=== PATIENT | female | born 1990 | race African-American/Black ===

== ENCOUNTER 2019-08-31 11:41 | Emergency (ER) | payer OTHER ==
[2019-08-31 11:57] VITALS: BP 115/86; PULSE 108; TEMP 98.7; BMI 24.9
--- NOTE | 2019-08-31 13:14 | PDOC ---
History of Present Illness - General Chief Complaint: Respiratory Stated Complaint: DIZZNESS/COUGHING/CONGESTED Time Seen by Provider: 08/31/19 12:41 History Source: Patient Exam Limitations: No Limitations Past History - Travel Traveled outside of the country in the last 30 days: No Close contact w/someone who was outside of country & ill: No - Past Medical History Allergies/Adverse Reactions: Allergies Allergy/AdvReac Type Severity Reaction Status Date / Time No Known Allergies Allergy Verified 08/31/19 11:58 Home Medications: Ambulatory Orders Albuterol Sulfate Inhaler - [Ventolin HFA Inhaler -] 1 - 2 inh PO Q4H #1 inhaler 08/31/19 Fluticasone Prop 0.05% Nasal [Flonase -] 1 - 2 spray NS DAILY #1 spray.pump 02/12 Meclizine HCl [Antivert -] 25 mg PO TID #21 tablet 08/31/19 Methylprednisolone [Medrol Dose Anthony] 4 mg PO ASDIR #21 tablet 08/31/19 Pseudoephedrine HCl 30 mg PO Q8H #21 tablet 08/31/19 COPD: No - Psycho Social/Smoking Cessation Hx Smoking History: Never smoked Hx Alcohol Use: No Drug/Substance Use Hx: No Review of Systems - Review of Systems Able to Perform ROS?: Yes Is the patient limited Tajik proficient: No *Physical Exam - Vital Signs Last Vital Signs Temp Pulse Resp BP Pulse Ox 98.7 F 108 H 14 115/86 97 08/31/19 11:55 08/31/19 11:55 08/31/19 11:55 08/31/19 11:55 08/31/19 11:55 Discharge - Discharge Information Problems reviewed: Yes Clinical Impression/Diagnosis: Bronchitis, Vertigo Condition: Stable Disposition: HOME - Admission No - Follow up/Referral - Patient Discharge Instructions Patient Printed Discharge Instructions: DI for Acute Bronchitis, DI for Vertigo Additional Instructions: You have bronchitis and vertigo (dizziness). Please use the inhaler every 4 hours for the next week to help with your cough. Continue taking the prednisone daily for the next 4 days. Take the Flonase and meclizine as directed for the dizziness Please follow up with your primary care doctor in 1 week if your symptoms are not improving. Return to the emergency department if you have fevers, chills, worsening cough, chest pain, worsening shortness of breath or if you have any changes in your symptoms. - Post Discharge Activity Work/Back to School Note: Back to Work
[2019-08-31] MEDS ORDERED: IBUPROFEN 600 MG TABLET (FP) PO ONE ×2 (13:27→13:29)
[2019-08-31] MEDS ORDERED: ALBUTEROL SO4 2.5/IPRATROPIUM 0.5 INH SOL 3 ML VIAL.NEB. NEB ONE ×2 (13:27→13:29)
[2019-08-31] MEDS ORDERED: DEXAMETHASONE LIQUID 0.5 MG/5 ML PO ONE (13:27)
[2019-08-31] MEDS ORDERED: DEXAMETHASONE SOD PHOSPHATE 10 MG/1 ML VIAL ONE (13:29)
[2019-08-31] MEDS ORDERED: MECLIZINE HCL 25 MG TABLET (FP) PO ONE (14:23)
[2019-08-31] MEDS ORDERED: MECLIZINE HCL 25 MG TABLET (FP) ONE (14:41)
== END 2019-08-31 14:46 | disposition home or self-care (01) ==
LOC: JERFT 11:41
PROC: 3E0F7GC Introduction of Other Therapeutic Substance into Respiratory Tract, Via Natural or Artificial Opening (ICD-10-PCS; principal; 2019-08-31)
DX: J20.9 Acute bronchitis, unspecified (principal); R42 Dizziness and giddiness
CPT/HCPCS: 71046-TC-FY; 87804; 94640; 99281-25

== ENCOUNTER 2020-03-14 12:26 | Emergency (ER) | payer OTHER ==
--- NOTE | 2020-03-14 12:42 | PDOC ---
History of Present Illness - General Stated Complaint: FEVER Time Seen by Provider: 03/14/20 12:42 History Source: Patient Exam Limitations: No Limitations - History of Present Illness Initial Comments: 03/14/20 13:02 30y previously healthy F presenting w 4d subjective fevers, body aches, R breast tenderness. Took tylenol intermittently w/o relief. Concerned she may have covid d/t exposure to and coworker covid+, works with children. Denies nausea/vomiting, cough, SOB, ABD pain, urinary/bowel mvmt changes. Past History - Medical History Allergies/Adverse Reactions: Allergies Allergy/AdvReac Type Severity Reaction Status Date / Time No Known Allergies Allergy Verified 08/31/19 11:58 Home Medications: Ambulatory Orders Albuterol Sulfate Inhaler - [Ventolin HFA Inhaler -] 1 - 2 inh PO Q4H #1 inhaler 08/31/19 Fluticasone Prop 0.05% Nasal [Flonase -] 1 - 2 spray NS DAILY #1 spray.pump 08/31/19 Meclizine HCl [Antivert -] 25 mg PO TID #21 tablet 08/31/19 Methylprednisolone [Medrol Dose Anthony] 4 mg PO ASDIR #21 tablet 08/31/19 Ondansetron [Zofran Odt -] 4 mg SL TID #10 od.tablet 08/31/19 Pseudoephedrine HCl 30 mg PO Q8H #21 tablet 08/31/19 COPD: No - Psycho-Social/Smoking History Smoking History: Never smoked Review of Systems - Review of Systems Constitutional: Yes: Chills, Fever HEENTM: No: Eye Pain, Nose Pain Respiratory: No: Cough, Shortness of Breath Cardiac (ROS): Yes: Chest Pain. No: Lightheadedness ABD/GI: No: Abdominal Distended, Diarrhea, Nausea, Vomiting : No: Burning, Dysuria Musculoskeletal: No: Back Pain, Joint Pain Integumentary: No: Bruising, Dryness Neurological: No: Headache, Seizure Psychiatric: No: Anxiety, Depression Endocrine: No: Intolerance to Cold, Intolerance to Heat Hematologic/Lymphatic: No: Anemia, Blood Clots *Physical Exam - Physical Exam General Appearance: Yes: Nourished, Appropriately Dressed, Mild Distress HEENT: positive: EOMI, MASON, Normal Voice, Hearing Grossly Normal. negative: Scleral Icterus (R), Scleral Icterus (L) Respiratory/Chest: positive: Chest Tender (R chest, no discharge/mass), Lungs Clear, Normal Breath Sounds. negative: Respiratory Distress, Crackles, Rales, Rhonchi, Stridor, Wheezing Cardiovascular: positive: Regular Rhythm, Regular Rate, S1, S2. negative: Edema, Murmur Gastrointestinal/Abdominal: positive: Normal Bowel Sounds, Flat, Soft. negative: Tender, Organomegaly Integumentary: positive: Normal Color, Warm. negative: Dry Neurologic: positive: Fully Oriented, Alert, Normal Mood/Affect, Normal Response, Responsive Medical Decision Making - Medical Decision Making 03/14/20 13:05 CXR - Single view of the chest is been submitted. Since 08/31/2019 there is a week or inspiration with central crowding of markings, prominent heart, normal aorta and some vague increased markings at the bases. Gross infiltrate is not seen. The angles are sharp. The bones and soft tissues are intact. Impression: Weak inspiration. Central crowding. --- 30y previously healthy F presenting w 4d subjective fevers, body aches, R breast tenderness. Possible covid infection and R breast pain - costochondritis (tender w palpation). Low concern for ACS (no risk factors) vs UTI vs vs PNA (no gross infiltrates). Vitals wnl, no respiratory distress Given tylenol. Pt refused covid nasal swab DC home w PCP f/u, quarantine instructions, supportive care Discharge - Discharge Information Problems reviewed: Yes Clinical Impression/Diagnosis: Costochondritis, Suspected COVID-19 virus infection Fever Qualifiers: Fever type: unspecified Qualified Code(s): R50.9 - Fever, unspecified Condition: Improved Disposition: HOME - Follow up/Referral - Patient Discharge Instructions Patient Printed Discharge Instructions: [facility]-Coronavirus Instructions, R- [facility] COVID-19 Isolation Protocol Additional Instructions: You refused the coronavirus nasal swab Please self-quarantine for the next 14 days for suspected coronavirus Take tylenol or ibuprofen if you have pain or fever Follow up with your primary care doctor Come back to the ED if you cannot breathe or persistent vomiting. - Post Discharge Activity
[2020-03-14] MEDS ORDERED: ACETAMINOPHEN 500 MG TABLET (FP) PO ONE (13:00)
[2020-03-14] MEDS ORDERED: ACETAMINOPHEN 325 MG TABLET (FP) ONE (13:18)
[2020-03-14 13:37] LABS: URINE APPEARANCE CLEAR; URINE BILIRUBIN NEGATIVE (NEGATIVE); URINE COLOR YELLOW; URINE GLUCOSE (UA) NEGATIVE (NEGATIVE); URINE KETONE NEGATIVE (NEGATIVE); URINE LEUK ESTERASE NEGATIVE (NEGATIVE); URINE NITRITE NEGATIVE (NEGATIVE); URINE PROTEIN NEGATIVE (NEGATIVE)
[2020-03-14 13:39] LABS: HCG,QUALITATIVE URINE Negative
[2020-03-14 13:40] VITALS: TEMP 99.8; BMI 28.3
--- NOTE | 2020-03-14 14:28 | PDOC ---
Documentation entered by Aletha Meraz SCRIBE, acting as scribe for Rosemary Pedroza MD. Rosemary Pedroza MD: This documentation has been prepared by the scribe, Aletha Dwyer SCRIBE, under my direction and personally reviewed by me in its entirety. I confirm that the documentation accurately reflects all work, treatment, procedures, and medical decision making performed by me. Attending Attestation - Resident Resident Name: Codie,Dave - ED Attending Attestation I have performed the following: I have examined & evaluated the patient, The case was reviewed & discussed with the resident, I agree w/resident's findings & plan, Exceptions are as noted - HPI HPI: 03/14/20 14:28 30 yo F here with fever x 5 days. Reports coworker COVID+ so thinks she might have COVID. Denies cough, SOB, abdominal pain or urinary complaints. Tolerating PO. Reports daughter at home has diarrhea but no fever. Patient denies diarrhea. - Physicial Exam PE: 03/14/20 14:29 General: very well appearing HEENT: NCAT, MMM CHest: CTAB, good air entry CVS: + s1 s2, RRR Abdomen: soft, nt no rebound, no guarding Extremities: warm and well perfused - Medical Decision Making 03/14/20 14:30 30 yo F here with fever and exposure to COVID+ coworker, no other complaints, very well appearing, no signs of respiratory issues and O2 sat 100%. Plan: -urine -cxr -pt refused COVID testing saying she does not want to have a nasal swab -tylenol as needed -reassess, anticipate d/c home with return precautions, instructions to quarantine, supportive care at home, PMD f/u This clinical encounter is taking place during a federal and state health care emergency attributable to the novel Parikh Virus pandemic. The Assistant Research Scientist of the Department of Health and Human Services has declared, pursuant to the Public Health Service Act 319F-3 (42 U.S.C. 247d-6d), that a covered persons activities related to medical countermeasures against COVID-19 will be immune from liability under Federal and State law. Discharge - Discharge Information Problems reviewed: Yes Clinical Impression/Diagnosis: Costochondritis, Suspected COVID-19 virus infection Fever Qualifiers: Fever type: unspecified Qualified Code(s): R50.9 - Fever, unspecified Condition: Improved Disposition: HOME - Follow up/Referral - Patient Discharge Instructions Patient Printed Discharge Instructions: [facility]Coronavirus Instructions, [facility]- [facility] COVID-19 Isolation Protocol Additional Instructions: You refused the coronavirus nasal swab Please self-quarantine for the next 14 days for suspected coronavirus Take tylenol or ibuprofen if you have pain or fever Follow up with your primary care doctor Come back to the ED if you cannot breathe or persistent vomiting. - Post Discharge Activity
[2020-03-14 15:19] VITALS: BP 118/76; PULSE 85
== END 2020-03-14 15:18 | disposition home or self-care (01) ==
LOC: JER 12:26
DX: M94.0 Chondrocostal junction syndrome [Tietze] (principal); R50.9 Fever, unspecified
CPT/HCPCS: 71045-TC-FY; 81003; 84703; 87086; 99284-25

== ENCOUNTER 2021-09-06 07:18 | Inpatient (IN) | payer OTHER ==
[2021-09-06 08:19] VITALS: BMI 31.8
[2021-09-06] MEDS ORDERED: CITRIC ACID/SODIUM CITRATE 30 ML UNIT-DOSE CUP PO ONE (08:20)
[2021-09-06] MEDS ORDERED: ELECTROLYTE-148 SOLN 500 ML IV ONE (08:20)
[2021-09-06] MEDS ORDERED: morphine SULFATE/PF 1 MG/2 ML (2cc Syringe - QUVA) ONE (08:26)
[2021-09-06] MEDS ORDERED: OXYTOCIN 20 UNITS in 0.9% NS 20 UNIT/1,000 ML INFUS.BAG IV ONE (08:27)
[2021-09-06] MEDS ORDERED: OXYTOCIN 10 UNITS/ML VIAL ONE (09:20)
[2021-09-06] MEDS ORDERED: DEXAMETHASONE SOD PHOSPHATE 4 MG/1 ML VIAL ONE (09:20)
[2021-09-06] MEDS ORDERED: KETOROLAC TROMETHAMINE 30 MG/1 ML VIAL ONE (09:20)
[2021-09-06] MEDS ORDERED: ceFAZolin SODIUM 1 GM VIAL ONE (09:20)
[2021-09-06] MEDS ORDERED: ONDANSETRON 4 MG/2 ML VIAL ONE (09:20)
[2021-09-06] MEDS ORDERED: ACETAMINOPHEN 1000 MG/100 ML BAG IVPB PRN (10:21)
[2021-09-06] MEDS ORDERED: ONDANSETRON 4 MG/2 ML VIAL IVPB PRN (10:21)
[2021-09-06] MEDS ORDERED: oxyCODONE HCL 5 MG TABLET PO PRN (10:21)
[2021-09-06] MEDS ORDERED: SENNOSIDES/DOCUSATE COMBO (SENNA PLUS) TABLET (UD) PO PRN (10:21)
[2021-09-06] MEDS ORDERED: morphine SULFATE/PF 1 MG/2 ML (2cc Syringe - QUVA) SPIN ONE (10:50)
[2021-09-06] MEDS: IBUPROFEN 800 MG/8 ML IJ IVPB PRN (17:42)
[2021-09-06] MEDS ORDERED: CEFAZOLIN 2 GM in DEXTROSE 5%-WATER - 50 ML IVPB SCH (18:00)
[2021-09-06] MEDS: CEFAZOLIN 2 GM in SODIUM CHLORIDE 100 ML IVPB SCH (18:11)
[2021-09-07] MEDS: OXYTOCIN 20 UNITS in 0.9% NS 20 UNIT/1,000 ML INFUS.BAG IV SCH ×2 (00:16→21:47)
[2021-09-07] MEDS: CEFAZOLIN 2 GM in SODIUM CHLORIDE 100 ML IVPB SCH (01:25)
[2021-09-07] MEDS: IBUPROFEN 800 MG/8 ML IJ IVPB PRN (06:43)
[2021-09-07 06:48] LABS: BASO % 0.4 % (0-2.0); EOS % 0.5 % (0-4.5); HEMATOCRIT 35.4 % (32.4-45.2); MCH 31.3 pg (25.7-33.7); MEAN CELL VOLUME 92.1 fl (80-96); MONO % 9.3 % (3.8-10.2); NEUT % 69.8 % (42.8-82.8); PLATELET COUNT 105 10^3/uL (134-434); RBC 3.84 M/mm3 (3.60-5.2); RDW 14.2 % (11.6-15.6); WHITE BLOOD COUNT 7.6 K/mm3 (4.0-10.0)
[2021-09-07] MEDS ORDERED: ACETAMINOPHEN 325 MG TABLET (FP) PO PRN (10:21)
[2021-09-07] MEDS ORDERED: BISACODYL 10 MG SUPP.RECT RC PRN (10:21)
[2021-09-07] MEDS: IBUPROFEN 600 MG TABLET (FP) PO PRN ×2 (13:07→17:29)
[2021-09-07] MEDS: SIMETHICONE 80 MG TAB.CHEW (FP) PO PRN ×2 (13:10→17:36)
[2021-09-08] MEDS: IBUPROFEN 600 MG TABLET (FP) PO PRN ×2 (03:01→09:14)
[2021-09-08] MEDS: SIMETHICONE 80 MG TAB.CHEW (FP) PO PRN ×2 (03:02→09:14)
[2021-09-08 10:20] VITALS: BP 130/76; PULSE 73; TEMP 98.6
== END 2021-09-08 15:35 | disposition home or self-care (01) | DRG 540 ==
LOC: JLDR 07:18 → J3W 12:55
PROVIDERS: ADMIT Specialist; ATTEND Specialist
PROC: 10D00Z1 Extraction of Products of Conception, Low, Open Approach (ICD-10-PCS; principal; 2021-09-06)
DX: O34.219 Maternal care for unspecified type scar from previous cesarean delivery (principal); O69.1XX0 Labor and delivery complicated by cord around neck, with compression, not applicable or unspecified; N73.6 Female pelvic peritoneal adhesions (postinfective); Z3A.39 39 weeks gestation of pregnancy; Z37.0 Single live birth
CPT/HCPCS: 36415; 85025; 88307-TC; J0131